=== PATIENT | male | born 2000 | race Caucasian/White ===

== ENCOUNTER 2023-01-28 18:10 | Outpatient (REF) | payer BC, SELFPAY ==
[2023-01-30 11:11] LABS: Lithium, Serum or Plasma 0.4 mmol/L (0.5-1.2)
== END 2023-01-28 18:11 | disposition home or self-care (01) ==
LOC: NPINS 18:10
DX: F39 Unspecified mood [affective] disorder (principal)
CPT/HCPCS: 80178